=== PATIENT | male | born 1975 | race Caucasian/White ===

== ENCOUNTER 2017-07-17 12:39 | Emergency (ER) | payer OTHER ==
[2017-07-17 12:47] VITALS: BP 137/90
--- NOTE | 2017-07-17 14:45 | ERNOTE ---
Lower Extremity HPI - Narrative Date of Service: 07/17/17 - General Lower Extremities Pain: knee: left Time Seen by Provider: 07/17/17 13:08 Source: patient, family, RN notes reviewed Exam Limitations: no limitations - Immun/Allergies/Home Medications Immunizations: IMMUNIZATION HX Immunizations Up to Date Yes History of Influenza Vaccine No Hx Pneumococcal Vaccination No Allergies/Adverse Reactions: Allergies Allergy/AdvReac Type Severity Reaction Status Date / Time No Known Allergies Allergy Unverified 07/17/17 12:47 Home Medications: HOME MEDICATIONS NK [No Home Medication] 07/17/17 [Last Taken Unknown] - History of Present Illness Narrative: 41 year old male ambulatory to the ED for a laceration to his left lower leg. He was using a chainsaw and cut himself. His bleeding in controlled on arrival. He reports that he has had a tetanus vaccination in the past 10 years. Occurred: just prior to arrival Location of Incident: home Associated Symptoms: Denies: unable to bear weight Other Injuries: Reports: none Subsequent Symptoms: Denies: sensory loss, numbness, motor loss Prior Treament: Denies: recently seen Review of Systems - Review of Systems Constitutional: Present: no symptoms reported EYE: Present: no symptoms reported ENT: Present: no symptoms reported Respiratory: Present: no symptoms reported Cardiology: Present: no symptoms reported Gastrointestinal/Abdominal: Present: no symptoms reported Genitourinary: Present: no symptoms reported Musculoskeletal: Absent: joint pain, joint swelling Skin: Absent: rash, lesions, lumps, change in color Neurological: Absent: dizziness/light-headedness, weakness, numbness, tingling Endocrine: Present: no symptoms reported Hematologic/Lymphatic: Absent: easy bruising, easy bleeding Psych: Present: no symptoms reported - Patient's Past Medical History Patient History - Medical: Other Patient History - Cardiac/Respiratory: No pertinent hx Patient History - Cancer: No Hx of Cancer Patient History - Surgical Procedures: Noncontributory Patient History - Other: None - Social History Living Situations: spouse Abuse History: No History of abuse Psych History: No pertinent hx Alcohol Use: none Drug Use: none - Immunizations Immunizations Up to Date: Yes Hx Pneumococcal Vaccination: No History of Influenza Vaccine: No Physical Exam - Physical Exam General Appearance: Present: wd/wn, alert, no apparent distress Head Exam: Present: normal inspection Respiratory: Present: no respiratory distress, no accessory muscle use Cardiovascular/Chest: Present: normal peripheral pulses Extremity Exam: Present: normal except - - left leg laceration, normal range of motion, no edema Neurological Exam: Present: alert, oriented, normal mood/affect, no motor/ sensory deficits Skin Exam: Present: normal color, warm/dry ED Progress - Vital Signs Patient's Vital Signs:: I have reviewed the patient's vital signs. Vital Signs: Vital Signs 07/17/17 12:42 Temperature 36.0 C L Pulse Rate 105 H Respiratory 12 Rate Blood Pressure 137/90 O2 Sat by Pulse 94 Oximetry - Progress/Reassessment Chief Complaint: Lower Extremity Pain/ Injury Progress:: Improved Procedures Left Anterior Leg Anesthesia: Lidocaine w/ Epi, Local I & D Prep: betadine prep, sterile drapes applied Length of Repair/Wound (cm): 15 Wound's Depth/Shape: superficial, into subcutaneous, irregular, contused tissue Wound Explored: clean, to base, in bloodless field, no foreign body Wound Intervention: irrigated w/saline, debrided minimal, margins revised Distal NVT: neuro/vasc intact, no tendon injury Wound Repaired With: sutures Suture Size/Type: 4-0, nylon Number of Sutures: 14 Layer Closure: Simple Wound Dressing: sterile dressing applied Complications: Pt angelita procedure well Comment: Entire length of wound did not require sutures as it was very superficial in places Left Knee I & D Prep: betadine prep Length of Repair/Wound (cm): 2.5 Wound's Depth/Shape: superficial, linear, flap Wound Explored: clean, to base, in bloodless field, no foreign body Wound Intervention: irrigated w/saline Distal NVT: neuro/vasc intact, no tendon injury Wound Repaired With: Steri-strips Complications: Pt angelita procedure well Departure Clinical Impression: Contact with chainsaw as cause of accidental injury Laceration of left lower leg Qualifiers: Encounter type: initial encounter Qualified Code(s): S81.812A - Laceration without foreign body, left lower leg, initial encounter - Departure Disposition: Home Follow Up Needed Condition: Good Instructions: Sutured Wound Care, [id number] Additional Instructions: Keep dressing dry and in place for 24 hours You can then wash the wound gently with soap and water, but do not soak in water for long periods of time Apply antibiotic ointment twice a day, cover with dressing as needed Have sutures removed in 10 to 14 days
== END 2017-07-17 14:45 | disposition home or self-care (01) ==
LOC: ER 12:39
PROC: 0JQP0ZZ Repair Left Lower Leg Subcutaneous Tissue and Fascia, Open Approach (ICD-10-PCS; principal; 2017-07-17)
DX: S81.812A Laceration without foreign body, left lower leg, initial encounter (principal); W31.2XXA Contact with powered woodworking and forming machines, initial encounter; Y93.9 Activity, unspecified; Y92.007 Garden or yard of unspecified non-institutional (private) residence as the place of occurrence of the external cause